=== PATIENT | male | born 2000 | race African-American/Black ===

== ENCOUNTER 2024-12-20 12:21 | Emergency (ER) | payer OTHER, SELFPAY ==
--- NOTE | ~2024-12-20 | XR_ITS ---
EXAMINATION: XR toe 1st RT min 2V DATE: 12/20/2024 12:44 INDICATION: Post [facility] right toe pain TECHNIQUE: Dorsal plantar, lateral and 2 oblique views of the right great toe were obtained. COMPARISON: None FINDINGS: Alignment is normal. No fracture. Joint spaces are normal. Soft tissues are unremarkable. IMPRESSION: No acute osseous abnormality. Reviewed, dictated and finalized at location A.
[2024-12-20 12:32] VITALS: BP 127/74; PULSE 73; RESP 20; TEMP 37; O2SAT 100
--- NOTE | 2024-12-20 12:36 | ED_ITS ---
HPI - Extremity Injury (Lower) General Chief Complaint: Extremity Injury, Lower Stated Complaint: pain in toe Patient presents to Express Care with complaints of pain and mild swelling to right big toe that began yesterday. Noted the day before he hit his toe on a baby gate in his home did not have any pain until the next day. Reports old football injuries but denies anything significant. Denies numbness or tingling to foot or toes. Related Data Allergies Allergy/AdvReac Type Severity Reaction Status Date / Time No Known Allergies Allergy Verified 12/20/24 12:47 Review of Systems Constitutional: Constitutional: Reports as per HPI, Denies chills, Denies fatigue, Denies fever(s) and Denies weakness Eyes: Eyes: Reports no additional eye complaints Cardiovascular: Cardiovascular: Reports no additional cardiovascular complaints Respiratory: Respiratory: Reports no additional respiratory complaints Gastrointestinal: Gastrointestinal: Reports no additional gastrointestinal complaints Genitourinary: Genitourinary: Reports no additional male genitourinary complaints Musculoskeletal: Musculoskeletal: Reports as per HPI, Reports arthralgias, Reports joint swelling and Denies muscle cramps Integumentary/Breasts: Skin/Breast: Reports as per HPI, Denies pruritus, Denies rash and Denies skin ulcer Neurologic: Reports as per HPI, Denies numbness and Denies weakness Psychiatric: Psychiatric: Reports no additional psychiatric complaints Endocrine: Endocrine: Reports no additional endocrine complaints Hematologic/Lymphatic: Hematologic/Lymphatic: Reports no additional hematologic/lymphatic complaints Allergic/Immunologic: Allergic/Immunologic: Reports no additional allergic/immunologic complaints Exam Const: General: healthy appearing and no acute distress Nutritional Appearance: well nourished Orientation/consciousness: patient oriented x3 Limitations: no limitations Resp: Effort & Inspection: normal respiratory effort Auscultation: clear to auscultation bilaterally Cardio: Rate: regular rate Rhythm: regular rhythm Skin: General skin exam: normal color Rashes: no rashes Wounds: no wounds Neuro: General: patient oriented x3 and moves all extremities Cranial nerves: Yes Nystagmus not present Speech: normal speech Gait exam (Neuro): Normal gait present Extrem: Right lower extremity: foot Details: normal capillary refill, abnormal to inspection, tenderness Location: of the great toe, abnormal ROM of toe ( Great toe) Details: pain with active ROM and pain with passive ROM, edema ( trace great toe), vascular exam Details: dorsalis pedis pulse present, posterior tibial pulse present and normal capillary refill, tendon exam Details: active flexion normal and active extension normal and motor-sensory exam Details: two point discrimination normal, light-touch normal and pin-prick normal; no unusual warmth, no abrasion, no laceration and no ecchymosis Psych: Mental Status: mental status grossly normal Affect: normal affect Attitude: cooperative Course Course Level of Care: Express Care Visit Vital Signs Vital signs: Vital Signs Temperature 98.6 F 12/20/24 12:32 Pulse Rate 73 12/20/24 12:32 Respiratory Rate 20 12/20/24 12:32 Blood Pressure 127/74 12/20/24 12:32 Pulse Oximetry 100 12/20/24 12:32 Oxygen Delivery Room Air 12/20/24 12:32 Temperature 98.6 F 12/20/24 12:32 Pulse Rate 73 12/20/24 12:32 Respiratory Rate 20 12/20/24 12:32 Blood Pressure 127/74 12/20/24 12:32 Pulse Oximetry 100 12/20/24 12:32 Oxygen Delivery Room Air 12/20/24 12:32 MDM - Extremity Injury (Lower) MDM Narrative Medical decision making narrative: x-rays ordered for evaluation. The patient was evaluated by myself in the express care. History is obtained from patient who is an independent historian and physical exam was performed. Available medical records were reviewed at this time. Exam findings show no acute concerns or changes; patient is non-toxic appearing and is in no distress. Patient is appropriate for outpatient treatment and follow-up. I have evaluated and discussed social determinants of health with the patient that could potentially impact subsequent diagnosis and treatment plans. Differential diagnosis and treatment plan were discussed with the patient. Patient agrees with discussion and after shared medical decision making agrees with plan of care. All questions were answered to the patient's satisfaction. Differential Diagnosis Differential diagnosis: Likely ankle sprain and strain, puncture wound of foot and fracture of toe Medical Records Attestation: I reviewed the patient's medical records. Imaging Data Attestation: I personally reviewed and interpreted this imaging study as follows: My impression: Abnormalities noted to distal phalanx great toe Radiologist's impression: IMPRESSION: No acute osseous abnormality. Reviewed, dictated and finalized at location A. Discharge Plan Discharge Clinical Impression: Contusion of great toe of right foot Patient Disposition: Home Condition: Stable Instructions: Antibiotic Form, Foot Contusion (ED) Additional Instructions: Xray showed no fracture. Minimize activities that aggravate the condition The RICE protocol. Follow the RICE protocol as soon as possible after your i njury: Rest your foot by not walking on it. Ice should be immediately applied to keep the swelling down. It can be used for 20 to 30 minutes, three or four times daily. Do not apply ice directly to your skin. Compression dressings, bandages or reginald-wraps will immobilize and support your injured ankle. Elevate your foot above the level of your heart as often as possible during the first 48 hours. Medication: Nonsteroidal anti-inflammatory drugs (NSAIDs) such as ibuprofen and naproxen can help control pain and swelling. Because they improve function by both reducing swelling and controlling pain, they are a better option for mild sprains than narcotic pain medicines. Please schedule a follow-up visit with your personal physician for further evaluation and treatment within 1week OR If your symptoms persist, change or worsen significantly before you can contact your personal physician then please, without delay, go to the emergency department for further evaluation. Patient Language: Nepali Prescriptions: New methylprednisolone [Medrol (Siddharth)] 4 mg tablets,dose pack See Rx Instructions .ROUTE .COMPLEX Qty: 21 0RF Rx Instructions: for 6 days Follow-up/Referrals: PHYSICIAN,ACADEMIC COMPUTING DIRECTOR [Primary Care Provider, Internal Medicine] Stand Alone Forms: Work/School Release IP Time of Disposition: 13:14
== END 2024-12-20 13:24 | disposition home or self-care (01) ==
PROVIDERS: Emergency Provider Nurse Practitioner Family
DX: S90.111A Contusion of right great toe without damage to nail, initial encounter (principal); W22.8XXA Striking against or struck by other objects, initial encounter
CPT/HCPCS: 73660; 99203; G0463